=== PATIENT | male | born 1975 | race Two or more races ===

== ENCOUNTER 2024-10-11 14:53 | Emergency (ER) | payer OTHER ==
[~2024-10-11] VITALS: Ht 172.7 cm; Wt 81.8 kg
--- NOTE | 2024-10-11 15:25 | ED.PDOC ---
HPI (NEURO) HPI Comments This is a 49 year old male BRYANTA presenting to the ED with chief complaint of seizure-like activity. EMS reports that the patient was witnessed today at a liquor store to have collapsed and had seizure-like activity. EMS relays that the activity lasted an unknown amount of minutes, however, patient was still post-ictal upon their arrival. EMS states patient has some retrograde amnesia, believing that last place he was at was home. Patient denies any medical history including seizures. Patient denies any head injury, ETOH use, dizziness, headache, N/V, tongue trauma, or incontinence. Time Seen by MD: 15:23 Reviewed Notes: Nurses Notes, International Trade Manager Notes, Medications, Allergies Information Source: Patient, Emergency Med Personnel Mode of Arrival: EMS Severity: Moderate Timing: Hours Duration: Minutes Prehospital treatment: None Seizure Quality: Shaking, Single Episodes Seizure Location: Generalized Onset: At rest Circumstances: Spontaneous History of: None Modifying factors: Nothing Past Medical History PAST MEDICAL HISTORY: Denies Surgical History: Denies all surgeries Family History Family History: Reviewed,noncontributory to illness Social History Smoker: Non-Smoker Alcohol: Denies ETOH Use Drugs: Denies Drug Use Lives In: Home Constitutional: denies: chills, diaphoresis, fatigue, fever, malaise, sweats, weakness, others EENTM: denies: blurred vision, double vision, ear bleeding, ear discharge, ear drainage, ear pain, ear ringing, eye pain, eye redness, hearing loss, mouth pain, mouth swelling, nasal discharge, nose bleeding, nose congestion, nose p ain, photophobia, tearing, throat pain, throat swelling, voice changes, others Respiratory: denies: cough, hemoptysis, orthopnea, SOB at rest, shortness of breath, SOB with excertion, stridor, wheezing, others Cardiovascular: denies: chest pain, dizzy spells, diaphoresis, Dyspnea on exertion, edema, irregular heart beat, left arm pain, lightheadedness, palpitations, PND, syncope, others Gastrointestinal: denies: abdomen distended, abdominal pain, blood streaked bowels, constipated, diarrhea, dysphagia, difficulty swallowing, hematemesis, melena, nausea, poor appetite, poor fluid intake, rectal bleeding, rectal pain, vomiting, others Genitourinary: denies: burning, dysuria, flank pain, frequency, hematuria, incontinence, penile discharge, penile sore, pain, testicle pain, testicle swelling, urgency, others Neurological: reports: seizure, others (Amnesia); denies: dizziness, fainting, headache, left sided numbness, left sided weakness, numbness, paresthesia, pre- existing deficit, right sided numbness, right sided weakness, speech problems, tingling, tremors, weakness Musculoskeletal: denies: back pain, gout, joint pain, joint swelling, muscle pain, muscle stiffness, neck pain, others Integumetry: denies: bruises, change in color, change in hair/nails, dryness, laceration, lesions, lumps, rash, wounds, others Allergic/Immunocompromised: denies: Difficulty Healing, Frequent Infections, Hives, Itching, others Hematologic/Lymphatic: denies: anemia, blood clots, easy bleeding, easy bruising, swollen glands, others Endocrine: denies: excessive hunger, excessive sweating, excessive thirst, excessive urination, flushing, intolerance to cold, intolerance to heat, unexplained weight gain, unexplained weight loss, others Psychiatric: denies: anxiety, bipolar disorder, depression, hopeless, panic disorder, schizophrenia, sleepless, suicidal, others All Other Systems: Reviewed and Negative Physical Exam General Appearance: Moderate Distress, Normal HEENT: Normal ENT Inspection, Pharynx Normal, TMs Normal Neck: Full Range of Motion, Non-Tender, Normal, Normal Inspection Respiratory: Chest Non-Tender, Lungs Clear, No Accessory Muscle Use, No Respiratory Distress, Normal Breath Sounds Cardiovascular: No Edema, No JVD, No Murmur, No Gallop, Normal Peripheral Pulses, Regular Rate/Rhythm Breast Exam: Deferred Gastrointestinal: No Organomegaly, Non Tender, No Pulsatile Mass, Normal Bowel Sounds, Soft Genitalia: Deferred Pelvic: Deferred Rectal: Deferred Extremities: No calf tenderness, Normal capillary refill, Normal inspection, Normal range of motion, Non-tender, No pedal edema Musculoskeletal : Apperance: Normal Neurologic: Alert, screw cutter II-XII nml as Tested, No Motor Deficits, Normal Affect, Normal Mood, No Sensory Deficits Cerebellar Function: NOT DONE Reflexes: NOT DONE Skin: Dry, Normal Color, Warm Peripheral Pulses: 3+ Radial (R), 3+ Radial (L) Lymphatic: No Adenopathy Was a procedure done? Was a procedure done?: No Differential Diagnosis (SZ) Seizure: Psychogenic Seizure, Closed Head Injury, CVA/TIA X-Ray, Labs, Meds, VS Vital Signs Date Time Temp Pulse Resp B/P (MAP) Pulse Ox O2 Delivery O2 Flow Rate FiO2 10/11/24 15:36 98.5 109 14 136/73 98 98.5 Patient alert. Possibly had a drink. Had a seizure at the liquor store. Saturation pristine on room air. Establish intravenous access. Was given fluids. Was given thiamine. Unable to get a good history from the patient. Counseled patient on effects of drinking for 15 minutes. No sign of any trauma. Moving all extremities. CT of the head was not done because possibly was due to alcohol not seizure. Explained to the patient Continue monitoring. Time of 1ST Reevaluation: 16:22 Reevaluation 1ST: Unchanged Patient Education/Counseling: Diagnosis, Treatment Family Education/Counseling: No Family Present Departure 1 Departure Time of Disposition: 15:56 Impression: Primary Impression: Alcohol related seizure Disposition: 01 HOME / SELF CARE / HOMELESS Condition: Good Discharged With: Self Critical Care Note Critical Care Time?: No Stability Stability form required: No Heart Score Heart Score: Heart Score Response (Comments) Value History N/A 0 EKG N/A 0 Age N/A 0 Risk Factors N/A 0 Troponin N/A 0 Total 0 I personally scribed for SHAISTA CANTU MD ([email or web address]) on 10/11/24 at 15:25. Electronically submitted by Wilder Fields ([email or web address]). SHAISTA CANTU MD Oct 11, 2024 15:25
[2024-10-11 16:08] LABS: Hematocrit 43.4 % (41.0-53.0); Hemoglobin 15.0 g/dL (13.5-17.5); Mean Corpuscular Hemoglobin 33.2 pg (28.0-32.0); Mean Corpuscular Volume 96.0 fL (80.0-100.0); Nucleated Red Blood Cells % 0.2 %
[2024-10-11 16:13] LABS: Sodium 136 mmol/L (136-145)
[2024-10-11 16:14] LABS: Anion Gap 20 (5-15); Carbon Dioxide 23 mmol/L (20-31)
[2024-10-11 16:15] LABS: Calcium 10.3 mg/dL (8.7-10.4); Chloride 93 mmol/L (98-107); Potassium 3.5 mmol/L (3.5-5.1)
[2024-10-11 16:20] LABS: BUN/Creatinine Ratio 10.3 (10.0-20.0); Blood Urea Nitrogen 10 mg/dL (9-23); Glucose 129 mg/dL (74-106)
[2024-10-11] MEDS: LORazepam 2MG/ML-1ML VIAL IV ONE (16:23)
[2024-10-11] MEDS: SODIUM CHLORIDE 0.9% 1,000 ML IV ONE ×2 (16:23→17:21)
[2024-10-11] MEDS: THIAMINE 100mg/ml INJ (200mg/2ml VIAL) IV ONE (16:28)
--- NOTE | 2024-10-11 18:39 | DVH ---
CT HEAD WITHOUT CONTRAST Indication: fall EXAM DATE: 10/11/2024 06:07 PM COMPARISON: None TECHNIQUE: CT of the head without intravenous contrast. RADIATION DOSE: CTDIvol: 56 mGy, DLP: 1113 mGy*cm FINDINGS: There is no intracranial hemorrhage. There is no extra-axial fluid, mass, mass effect or midline shif t. The ventricles are midline and normal in size. Basilar cisterns are patent. Machado-white differentia tion is maintained. 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 The paranasal sinuses and mastoids are well-pneumatized. Imaged portion of the orbits are unremarkabl e. IMPRESSION: No intracranial hemorrhage or mass effect.
[2024-10-12 05:50] VITALS: BP 138/88; PULSE 110; RESP 17; TEMP 99; O2SAT 97
== END 2024-10-12 06:05 | disposition home or self-care (01) ==
LOC: ER 14:53 → EDBD 14:53 → ER 10-12 06:05
DX: G40.501 Epileptic seizures related to external causes, not intractable, with status epilepticus (principal); Z79.899 Other long term (current) drug therapy
CPT/HCPCS: 36415; 70450; 80048; 80320; 85025; 96361; 96374; 96375; 99285; J2060; J3411; J7030

== ENCOUNTER 2024-10-12 11:13 | Inpatient (IN) | payer OTHER ==
[~2024-10-12] VITALS: Ht 175.3 cm; Wt 77.5 kg
--- NOTE | 2024-10-12 11:43 | ED.PDOC ---
Altered Mental Status HPI Comments 49-year-old male, brought in by mother presents to the emergency department if there chief complaint of ALOC. Upon arrival to the emergency department, patient is A&Ox1 to self only. Patient does endorse drinking an unknown amount of Tequila today (10/12/24). Patient was seen at [facility] yesterday (10/11/24) for an alcohol induced seizure. Unable to obtain further history or PMHx due to patient intoxication. Chief Complaint: ALOC Time Seen by MD: 11:40 Reviewed Notes: Nurses Notes, Medications, Allergies Allergies: Coded Allergies: NO KNOWN ALLERGIES (Unverified , 10/11/24) Information Source: Patient, Relative (Mother) Mode of Arrival: Ambulatory Severity: Moderate Timing: Hours Duration: Since onset Prehospital treatment: None Quality: Decreased Alertness Recent: None History of: None Associated Signs and Symptoms: None Past Medical History PAST MEDICAL HISTORY: Denies Surgical History: Denies all surgeries Family History Family History: Reviewed,noncontributory to illness Social History Smoker: Non-Smoker Alcohol: Heavy Drugs: Denies Drug Use Lives In: Home Unable to Obtain due to: Altered Mental Status Physical Exam General Appearance: Moderate Distress HEENT: Normal ENT Inspection, Pharynx Normal, TMs Normal Neck: Full Range of Motion, Non-Tender, Normal, Normal Inspection Respiratory: Chest Non-Tender, Lungs Clear, No Accessory Muscle Use, No Respiratory Distress, Normal Breath Sounds Cardiovascular: No Edema, No JVD, No Murmur, No Gallop, Normal Peripheral Pulses, Regular Rate/Rhythm Breast Exam: Deferred Gastrointestinal: No Organomegaly, Non Tender, No Pulsatile Mass, Normal Bowel Sounds, Soft Genitalia: Deferred Pelvic: Deferred Rectal: Deferred Extremities: No calf tenderness, Normal capillary refill, Normal inspection, Normal range of motion, Non-tender, No pedal edema Musculoskeletal : Apperance: Normal Neurologic: Alert, mailing machine helper II-XII nml as Tested, No Motor Deficits, Normal Affect, Normal Mood, No Sensory Deficits Cerebellar Function: Normal Reflexes: Normal Skin: Dry, Normal Color, Warm Peripheral Pulses: 3+ Radial (R), 3+ Radial (L) Lymphatic: No Adenopathy Was a procedure done? Was a procedure done?: No Differential Diagnosis (ALOC) Differential Diagnosis: Dehydration, Seizure, ETOH Intoxication X-Ray, Labs, Meds, VS Vital Signs Date Time Temp Pulse Resp B/P (MAP) Pulse Ox O2 Delivery O2 Flow Rate FiO2 10/12/24 12:00 Room Air* 0 21 10/12/24 12:00 97.9 83 20 128/87 (101) 96 97.9 10/12/24 11:28 87 10/12/24 11:14 97.5 105 20 144/93 99 97.5 Lab Test 10/12/24 13:26 10/12/24 11:21 Range/Units White Blood Count 6.3 # 4.4-10.8 10^3/uL Red Blood Count 4.35 L 4.5-5.90 10^6/uL Hemoglobin 14.6 13.5-17.5 g/dL Hematocrit 41.3 41.0-53.0 % Mean Corpuscular Volume 95.0 80.0-100.0 fL Mean Corpuscular Hemoglobin 33.6 H 28.0-32.0 pg Mean Corpuscular Hemoglobin Concent 35.4 32.0-36.0 g/dL Red Cell Distribution Width 13.0 11.8-14.3 % Platelet Count 119 L 140-450 10^3/uL Mean Platelet Volume 7.2 6.9-10.8 fL Neutrophils (%) (Auto) 73.7 37.0-80.0 % Lymphocytes (%) (Auto) 17.9 10.0-50.0 % Monocytes (%) (Auto) 8.2 0.0-12.0 % Eosinophils (%) (Auto) 0.0 0.0-7.0 % Basophils (%) (Auto) 0.2 0.0-2.0 % Neutrophils # (Auto) 4.6 1.6-8.6 10 ^3/uL Lymphocytes # (Auto) 1.1 0.4-5.4 10 ^3/uL Monocytes # (Auto) 0.5 0-1.3 10 ^3/uL Eosinophils # (Auto) 0 0-0.8 10 ^3/uL Basophils # (Auto) 0 0-0.2 10 ^3/uL Nucleated Red Blood Cells 0.1 % Sodium Level 136 136-145 mmol/L Potassium Level 3.0 L 3.5-5.1 mmol/L Chloride Level 96 L 98-107 mmol/L Carbon Dioxide Level 24 20-31 mmol/L Anion Gap 16 H 5-15 Blood Urea Nitrogen 5 L 9-23 mg/dL Creatinine 0.74 0.700-1.30 mg/dL Glomerular Filtration Rate Calc 110 >90 mL/min BUN/Creatinine Ratio 6.8 L 10.0-20.0 Serum Glucose 89 74-106 mg/dL Calcium Level 9.5 8.7-10.4 mg/dL Plasma/Serum Blood Alcohol 294.9 H <10 mg/dL POC Glucose 113 H 70-106 mg/dl Current Medications Medications (Trade) Dose Ordered Sig/Nir Route Start Time Stop Time Status Last Admin Sodium Chloride 1,000 ml @ 1,000 mls/hr Q1H ONCE IVB 10/12/24 11:30 10/12/24 12:29 DC 10/12/24 11:57 Thiamine HCl 100 mg ONCE ONCE IV 10/12/24 11:30 10/12/24 11:31 DC 10/12/24 12:01 Lorazepam (Ativan Inj) 2 mg ONCE ONCE IM 10/12/24 12:15 10/12/24 12:16 DC 10/12/24 12:18 Patient alert. Was seen here yesterday for the same symptom pain Alcohol abuse. Answering questions. Establish intravenous access. Was given fluids. Was given thiamine. Was given Ativan. Potassium is low. Was given potassium. Possible seizure prior to coming. Was given Keppra. He will be admitted for seizure disorder. Continue monitoring. Time of 1ST Reevaluation: 12:10 Reevaluation 1ST: Unchanged Patient Education/Counseling: Diagnosis, Treatment Family Education/Counseling: No Family Present SEPSIS Sepsis Screen Date sepsis recognized/suspect: Oct 12, 2024 Time Sepsis recognized/suspect: 1114 Recent Procedure: No On Antibiotic Therapy: No Respiratory Rate >20: No Heart Rate >90: Yes Temp<36 C (96.8 F) or >38.3 C: No SBP <90 or MAP <65 mmHG: No New Acute Mental Status Change: No Is the patient on CPAP, BIPAP,: No Physician Orders Upsetting Machine Operator (10/12/24 11:30) Urinalysis (10/12/24 14:05) Vital Signs Date Time Temp Pulse Resp B/P (MAP) Pulse Ox O2 Delivery O2 Flow Rate FiO2 10/12/24 12:00 Room Air* 0 21 10/12/24 12:00 97.9 83 20 128/87 (101) 96 97.9 10/12/24 11:28 87 10/12/24 11:14 97.5 105 20 144/93 99 97.5 Laboratory Tests Test 10/12/24 13:26 White Blood Count 6.3 10^3/uL (4.4-10.8) # Medications Medications Dose Ordered Sig/Nir Route Start Time Stop Time Status Last Admin Dose Admin Lorazepam 2 mg ONCE ONCE IM 10/12/24 12:15 10/12/24 12:16 DC 10/12/24 12:18 Sodium Chloride 1,000 ml @ 1,000 mls/hr Q1H ONCE IVB 10/12/24 11:30 10/12/24 12:29 DC 10/12/24 11:57 Thiamine HCl 100 mg ONCE ONCE IV 10/12/24 11:30 10/12/24 11:31 DC 10/12/24 12:01 Departure 1 Departure Time of Disposition: 14:35 Impression: Primary Impression: Alcohol related seizure Additional Impressions: Seizure disorder Alcohol abuse Disposition: ADMITTED INPATIENT Admit to: Med Surg Condition: Guarded Critical Care Note Critical Care Time?: No Stability Stability form required: No Heart Score Heart Score: Heart Score Response (Comments) Value History N/A 0 EKG N/A 0 Age N/A 0 Risk Factors N/A 0 Troponin N/A 0 Total 0 I personally scribed for SHAISTA CANTU MD ([email or web address]) on 10/12/24 at 11:43. Electronically submitted by Tran Walden ([email or web address]). I personally scribed for SHAISTA CANTU MD ([email or web address]) on 10/12/24 at 11:47. Electronically submitted by Tran Walden ([email or web address]). SHAISTA CANTU MD Oct 12, 2024 11:43
--- NOTE | 2024-10-12 11:50 | ECG ---
[facility] Test Date: 2024-10-12 Test Time: 11:28:45 Pat Name: KEERTHI DELVALLE Department: [facility] ED Patient ID: [facility]-[id number] Room: 0278T Gender: M Upholsterer Inside: YEISON : 1975 Requested By: SHAISTA CANTU Order Number: [id number] Reading MD: Joseph Prakash Measurements Intervals [place] Rate: 87 P: 75 VT: 169 QRS: 5 QRSD: 93 T: 23 QT: 374 QTc: 450 Interpretive Statements Sinus rhythm Posterior infarct, old Electronically Signed On 10-13-2024 18:47:08 PDT by Joseph Prakash Please click the below link to view image of tracing.
[2024-10-12] MEDS: SODIUM CHLORIDE 0.9% 1,000 ML IVB ONE (11:57)
[2024-10-12] MEDS: THIAMINE 100mg/ml INJ (200mg/2ml VIAL) IV ONE (12:01)
[2024-10-12] MEDS: LORazepam 2MG/ML-1ML VIAL IM ONE (12:18)
[2024-10-12] MEDS: LORazepam 2MG/ML-1ML VIAL ONE (12:20)
[2024-10-12 13:48] LABS: Hematocrit 41.3 % (41.0-53.0); Hemoglobin 14.6 g/dL (13.5-17.5); Mean Corpuscular Hemoglobin 33.6 pg (28.0-32.0); Mean Corpuscular Volume 95.0 fL (80.0-100.0); Nucleated Red Blood Cells % 0.1 %
[2024-10-12 13:55] LABS: Anion Gap 16 (5-15); Calcium 9.5 mg/dL (8.7-10.4); Carbon Dioxide 24 mmol/L (20-31)
[2024-10-12 13:59] LABS: Chloride 96 mmol/L (98-107); Potassium 3.0 mmol/L (3.5-5.1); Sodium 136 mmol/L (136-145)
[2024-10-12 14:00] LABS: BUN/Creatinine Ratio 6.8 (10.0-20.0); Glucose 89 mg/dL (74-106)
[2024-10-12 14:06] LABS: Blood Urea Nitrogen 5 mg/dL (9-23)
[2024-10-12] MEDS: levETIRAcetam 1000 mg/100ml 100 ML IV ONE (15:07)
[2024-10-12] MEDS ORDERED: ONDANSETRON HCL 4 MG/2 ML VIAL IV PRN (15:15)
[2024-10-12] MEDS ORDERED: MORPHINE SULFATE INJ 2 MG/ml SYRG IV PRN (15:15)
[2024-10-12] MEDS ORDERED: NITROGLYCERIN 0.4 MG SL TAB SL PRN (15:15)
[2024-10-12] MEDS ORDERED: LORazepam 2MG/ML-1ML VIAL IV PRN (15:15)
[2024-10-12] MEDS ORDERED: ACETAMINOPHEN 325 MG TAB PO PRN (15:15)
[2024-10-12] MEDS ORDERED: DOCUSATE SOD 100 MG CAP PO PRN (15:15)
--- NOTE | 2024-10-12 15:18 | DVHHP2 ---
History of Present Illness Reason for Visit: Alcohol related seizure History of Present Illness The patient is a 49-year-old male with past medical history of EtOH abuse who presented to [facility] ED for evaluation of altered level of consciousness. As reported, patient was alert oriented to self only, endorses to drinking an unknown amount of Tequila today, non experiencing tremors, agitation, alcohol-induced seizure. [facility] 10[facility]/2024 for same symptoms. Patient was seen and evaluated in the ED, laboratory data shows WBC 6.3, platelets 119, sodium 136, potassium 3.0, BUN 5, creatinine 0.74, glucose 89, calcium 9.5, alcohol level 294.9, blood pressure 128/87, heart rate 83, temperature 97.9 F, O2 saturation 96% on room air. Head CT showed no intracranial hemorrhage or mass effect. Please see medication orders section in the computer. On my assessment, patient remains disorganized, denied chest pain, no headache, no dizziness, no shortness of breath, no nausea, no vomiting, no fever, no chills. Patient was admitted for further evaluation and medical management. Past Medical History EtOH abuse Past Surgical History Denies all surgeries Family History Reviewed, noncontributory to the management of this case. Past Social History Patient lives at home, denies smoking, drinks alcohol heavily, denies illicit drugs abuse. Review of Systems Constitutional: No: Fever, Chills, Sweats, Weakness, Malaise, Other Eyes: No: Pain, Vision change, Conjunctivae inflammation, Eyelid inflammation, Other, Redness ENT: No: Ear pain, Ear discharge, Nose pain, Nose discharge, Nose congestion, Mouth pain, Mouth swelling, Throat pain, Throat swelling, Other Respiratory: No: Cough, Dry, Shortness of breath, SOB with excertion, Wheezing, Hemoptysis, Pleuritic Pain, Sputum, Wheezing, Other Cardiovascular: No: Chest Pain, Palpitations, Orthopnea, Paroxysmal Noc. Dyspnea, Edema, Lt Headedness, Other Gastrointestinal: No: Nausea, Vomiting, Abdominal Pain, Diarrhea, Constipation, Melena, Hematochezia, Other Genitourinary: No Dysuria, No Frequency, No Incontinence, No Hematuria, No Retention, No Other Musculoskeletal: No: other, neck pain, shoulder pain, arm pain, back pain, hand pain, leg pain, foot pain Skin: No: Rash, Lesions, Jaundice, Bruising, Other Neurological: Seizures (Alcohol-induced), Other (Altered level of consciousness); No: Weakness, Numbness, Incoordination, Change in speech, Confusion Allergies: Coded Allergies: NO KNOWN ALLERGIES (Unverified , 10/11/24) Exam Vital Signs Vital Signs Date Time Temp Pulse Resp B/P (MAP) Pulse Ox O2 Delivery O2 Flow Rate FiO2 10/12/24 12:00 Room Air* 0 21 10/12/24 12:00 97.9 83 20 128/87 (101) 96 97.9 General Appearance: Alert, Cooperative, No acute distress, Other (Oriented x2) HEENT: Atraumatic, PERRLA, EOMI, Mucous membr. moist/pink Respiratory: Clear to auscultation, Normal air movement Cardiovascular: Regular rate, Normal S1, Normal S2, No murmurs Abdominal: Normal bowel sounds, Soft, No tenderness, No hepatospenomegaly, No masses Extremities: No clubbing, No cyanosis, No edema, Normal pulses, No tenderness/swelling Skin: No rashes, No breakdown, No significant lesion Neuro: Normal speech, Normal tone, Sensation intact, Cranial nerves 3-12 NL, Reflexes 2+, Other (Unsteady gait) Psych/Mental Status: Mood NL, Other (Altered mental status) Labs/Xrays Labs Test 10/12/24 13:26 10/12/24 11:21 Range/Units White Blood Count 6.3 # 4.4-10.8 10^3/uL Red Blood Count 4.35 L 4.5-5.90 10^6/uL Hemoglobin 14.6 13.5-17.5 g/dL Hematocrit 41.3 41.0-53.0 % Mean Corpuscular Volume 95.0 80.0-100.0 fL Mean Corpuscular Hemoglobin 33.6 H 28.0-32.0 pg Mean Corpuscular Hemoglobin Concent 35.4 32.0-36.0 g/dL Red Cell Distribution Width 13.0 11.8-14.3 % Platelet Count 119 L 140-450 10^3/uL Mean Platelet Volume 7.2 6.9-10.8 fL Neutrophils (%) (Auto) 73.7 37.0-80.0 % Lymphocytes (%) (Auto) 17.9 10.0-50.0 % Monocytes (%) (Auto) 8.2 0.0-12.0 % Eosinophils (%) (Auto) 0.0 0.0-7.0 % Basophils (%) (Auto) 0.2 0.0-2.0 % Neutrophils # (Auto) 4.6 1.6-8.6 10 ^3/uL Lymphocytes # (Auto) 1.1 0.4-5.4 10 ^3/uL Monocytes # (Auto) 0.5 0-1.3 10 ^3/uL Eosinophils # (Auto) 0 0-0.8 10 ^3/uL Basophils # (Auto) 0 0-0.2 10 ^3/uL Nucleated Red Blood Cells 0.1 % Sodium Level 136 136-145 mmol/L Potassium Level 3.0 L 3.5-5.1 mmol/L Chloride Level 96 L 98-107 mmol/L Carbon Dioxide Level 24 20-31 mmol/L Anion Gap 16 H 5-15 Blood Urea Nitrogen 5 L 9-23 mg/dL Creatinine 0.74 0.700-1.30 mg/dL Glomerular Filtration Rate Calc 110 >90 mL/min BUN/Creatinine Ratio 6.8 L 10.0-20.0 Serum Glucose 89 74-106 mg/dL Calcium Level 9.5 8.7-10.4 mg/dL Plasma/Serum Blood Alcohol 294.9 H <10 mg/dL POC Glucose 113 H 70-106 mg/dl PATIENT: KEERTHI DELVALLE ACCT: [id number] UNIT: [id number] : 1975 LOC: ER ROOM / BED: / AGE / SEX: 49 / M ADM STATUS: REG ER SERVICE 1801 ORDERING PHYSICIAN: SHAISTA CANTU MD PROCEDURE(s): HWOCT - HEAD WITHOUT CONTRAST REASON: fall ORDER NUMBER(s): [id number], ACCESSION NUMBER(s): [id number] CT HEAD WITHOUT CONTRAST Indication: fall EXAM DATE: 10/11/2024 06:07 PM COMPARISON: None TECHNIQUE: CT of the head without intravenous contrast. RADIATION DOSE: CTDIvol: 56 mGy, DLP: 1113 mGy*cm FINDINGS: There is no intracranial hemorrhage. There is no extra-axial fluid, mass, mass effect or midline shift. The ventricles are midline and normal in size. Basilar cisterns are patent. Machado-white differentiation is maintained. 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 The paranasal sinuses and mastoids are well-pneumatized. Imaged portion of the orbits are unremarkable. IMPRESSION: No intracranial hemorrhage or mass effect. SEPSIS Sepsis Screen Date sepsis recognized/suspect: Oct 12, 2024 Time Sepsis recognized/suspect: 1200 Recent Procedure: No On Antibiotic Therapy: No Respiratory Rate >20: No Heart Rate >90: No Temp<36 C (96.8 F) or >38.3 C: No SBP <90 or MAP <65 mmHG: No New Acute Mental Status Change: Yes Is the patient on CPAP, BIPAP,: No Physician Orders Highway Technician (10/12/24 11:30) Urinalysis (10/12/24 14:05) Vital Signs Date Time Temp Pulse Resp B/P (MAP) Pulse Ox O2 Delivery O2 Flow Rate FiO2 10/12/24 12:00 Room Air* 0 21 10/12/24 12:00 97.9 83 20 128/87 (101) 96 97.9 10/12/24 11:28 87 10/12/24 11:14 97.5 105 20 144/93 99 97.5 Laboratory Tests Test 10/12/24 13:26 White Blood Count 6.3 10^3/uL (4.4-10.8) # Medications Medications Dose Ordered Sig/Nir Route Start Time Stop Time Status Last Admin Dose Admin Levetiracetam 100 ml @ 400 mls/hr ONCE ONCE IV 10/12/24 14:45 10/12/24 14:59 DC 10/12/24 15:07 400 MLS/HR Lorazepam 2 mg ONCE ONCE IM 10/12/24 12:15 10/12/24 12:16 DC 10/12/24 12:18 2 MG Sodium Chloride 1,000 ml @ 1,000 mls/hr Q1H ONCE IVB 10/12/24 11:30 10/12/24 12:29 DC 10/12/24 11:57 1,000 MLS/HR Thiamine HCl 100 mg ONCE ONCE IV 10/12/24 11:30 10/12/24 11:31 DC 10/12/24 12:01 100 MG Assessment/Plan Assessment/Plan Alcohol intoxication Hypokalemia Alcohol related seizure Alcohol withdrawal syndrome Plan 1. Admit to telemetry unit 2. Breathing treatment 3. Pain control management 4. Management of fluids and electrolytes 5. Consultation for hospitalist 6. Diagnostic tests head CT 7. DVT prophylaxis-on SCDs 8. Repeat labs CBC, CMP in a.m. 9. Continue with current medical management 10. Treatment plan discussed with patient and RN. Patient verbalized understanding. Plan discussed with: Patient, Other (RN) Problem List: (1) Alcohol intoxication (2) Hypokalemia (3) Alcohol related seizure (4) Alcohol withdrawal syndrome Date of Service: Oct 12, 2024 Billing Provider: NITHYA FERGUSON DNP Common Visit Codes: [id number] INP/OBS CARE (HIGH) NITHYA FERGUSON DNP Oct 12, 2024 15:18
[2024-10-12 16:08] LABS: Urine Protein, UAD Negative (Negative)
[2024-10-12] MEDS: SODIUM CHLORIDE 0.9% 1,000 ML IV SCH (16:30)
[2024-10-12] MEDS: FOLIC ACID 1 MG in D5W 5% 50 ML INJ ONE (18:10)
[2024-10-12] MEDS: POTASSIUM CHL 20 Meq TABLET PO ONE (20:15)
[2024-10-12 22:36] VITALS: BP 146/100; PULSE 94; RESP 20; TEMP 98.4; O2SAT 99
[2024-10-13] MEDS: CALCIUM CARB 500 MG CHEW TAB PO ONE (00:49)
[2024-10-13 06:55] LABS: Hematocrit 39.2 % (41.0-53.0); Hemoglobin 13.9 g/dL (13.5-17.5); Mean Corpuscular Hemoglobin 33.9 pg (28.0-32.0); Mean Corpuscular Volume 96.0 fL (80.0-100.0); Nucleated Red Blood Cells % 0.0 %
[2024-10-13 07:20] LABS: Alkaline Phosphatase 89 U/L (46-116); Anion Gap 13 (5-15); BUN/Creatinine Ratio 5.9 (10.0-20.0); Calcium 10.2 mg/dL (8.7-10.4); Carbon Dioxide 25 mmol/L (20-31); Glucose 82 mg/dL (74-106); Potassium 3.5 mmol/L (3.5-5.1); Total Protein 7.8 g/dL (5.7-8.2)
[2024-10-13 07:33] LABS: Alanine Aminotransferase 129 U/L (7-40); Albumin 5.1 g/dL (3.2-4.8); Bilirubin, Total 2.1 mg/dL (0.2-1.0); Blood Urea Nitrogen 5 mg/dL (9-23); Chloride 95 mmol/L (98-107); Sodium 133 mmol/L (136-145)
[2024-10-13 08:00] VITALS: PULSE 79; RESP 16
[2024-10-13] MEDS: FOLIC ACID 1 MG in D5W 5% 50 ML INJ SCH (10:28)
[2024-10-13] MEDS: THIAMINE 100mg/ml INJ (200mg/2ml VIAL) IV SCH (10:29)
[2024-10-13 10:55] LABS: Hepatitis B Surface Antigen Negative (Negative)
[2024-10-13 11:26] LABS: Hepatitis C Antibody Negative (Negative)
--- NOTE | 2024-10-13 11:51 | DVHPN2 ---
Reviewed: Care Plan, H&P, Labs, Medications, Previous Orders, Radiology Changes from previous H/P or p: No Changes Eyes: No Pain, No Vision change, No Conjunctivae inflammation, No Eyelid inflammation, No Other, No Redness ENT: No Ear pain, No Ear discharge, No Nose pain, No Nose discharge, No Nose congestion, No Mouth pain, No Mouth swelling, No Throat pain, No Throat swelling, No Other Cardiovascular: No Chest Pain, No Palpitations, No Orthopnea, No Paroxysmal Noc. Dyspnea, No Edema, No Lt Headedness, No Other Respiratory: No Cough, No Dry, No Shortness of breath, No SOB with excertion, No Wheezing, No Hemoptysis, No Pleuritic Pain, No Sputum, No Other Gastrointestinal: No Nausea, No Vomiting, No Abdominal Pain, No Diarrhea, No Constipation, No Melena, No Hematochezia, No Other Genitourinary: No Dysuria, No Frequency, No Incontinence, No Hematuria, No Retention, No Other Musculoskeletal: No other, No neck pain, No shoulder pain, No arm pain, No back pain, No hand pain, No leg pain, No foot pain Skin: No Rash, No Lesions, No Jaundice, No Bruising, No Other Objective Vitals Vital Signs Date Time Temp Pulse Resp B/P (MAP) Pulse Ox O2 Delivery O2 Flow Rate FiO2 10/13/24 08:00 79 16 Room Air* 0 21 10/12/24 22:36 98.4 146/100 (115) 99 98.4 Intake/Output Intake and Output 10/13/24 07:00 Intake Total 0 ml Output Total 300 ml Balance -300 ml Intake Oral 0 ml Output Urine Total 300 ml Medications Current Medications Medications Dose Ordered Sig/Nir Route Start Time Stop Time Status Last Admin Dose Admin Thiamine HCl 100 mg DAILY IV 10/13/24 10:00 10/13/24 10:29 100 MG Folic Acid 1 mg/ Dextrose 50.2 ml @ 200.8 mls/ hr DAILY INJ 10/13/24 10:00 10/13/24 10:28 200.8 MLS/HR Lorazepam 1 mg Q2HP PRN IV 10/12/24 15:15 Sodium Chloride 1,000 ml @ 120 mls/hr Q8H20M IV 10/12/24 15:15 10/13/24 07:55 120 MLS/HR Ondansetron HCl 4 mg Q4HP PRN IV 10/12/24 15:15 Docusate Sodium 100 mg BIDPRN PRN PO 10/12/24 15:15 Acetaminophen 650 mg Q6HP PRN PO 10/12/24 15:15 Nitroglycerin 0.4 mg Q5MINP PRN SL 10/12/24 15:15 Morphine Sulfate 2 mg Q30M PRN IV 10/12/24 15:15 Laboratory Results Laboratory Tests 10/13/24 05:52 Chemistry Test 10/12/24 13:26 10/13/24 05:52 Calcium Level 9.5 mg/dL (8.7-10.4) 10.2 mg/dL (8.7-10.4) Albumin 5.1 g/dL (3.2-4.8) H Total Protein 7.8 g/dL (5.7-8.2) LFT Test 10/13/24 05:52 Alanine Aminotransferase (ALT) 129 U/L (7-40) H Alkaline Phosphatase 89 U/L (46-116) Aspartate Amino Transferase (AST) 206 U/L (13-40) H Total Bilirubin 2.1 mg/dL (0.2-1.0) H Urinalysis Test 10/12/24 15:48 Urine Color Light-yellow (Yellow) Urine Clarity Clear (Clear) Urine pH 7.0 (5.0-9.0) Urine Specific [place] 1.004 (1.001-1.035) Urine Protein Negative (Negative) Urine Ketones Negative (Negative) Urine Blood 1+ /uL (Negative) H Urine Nitrite Negative (Negative) Urine Bilirubin Negative (Negative) Urine Urobilinogen Normal mg/dL (Negative) Urine Leukocyte Esterase Negative /uL (Negative) Urine RBC 1 /hpf (0 - 3) Urine Microscopic WBC < 1 /HPF (0-3) Urine Squamous Epithelial Cells None seen /hpf (<5) Urine Bacteria None seen /hpf (None Seen) Urine Glucose Normal mg/dL (Normal) Labs and/or images reviewed: Labs reviewed by me, Image(s) reviewed by me Assessment/Plan Assessment/Plan Acute alcoholic intoxication blood alcohol 294; thiamine folic acid Ativan Acute dehydration: IV fluids Acute metabolic and toxic encephalopathy Chronic current alcohol abuse: Counseling Elevated liver enzymes AST and ALT in the range of 200s. Hep B negative hep C negative, GI consult Time spent [address] head negative Plan discussed with: Patient My Orders Orders - ART EUGENE MD Procedure Category Date Status Time Gallbladder US 10/13/24 Logged 11:45 * Gi Dvh Camera Repairman CONS 10/13/24 Transmitted 11:46 Date of Service: Oct 13, 2024 Billing Provider: ART EUGENE MD Common Visit Codes: [id number] INP/OBS CARE(HIGH) ART EUGENE MD Oct 13, 2024 11:51
--- NOTE | 2024-10-13 12:56 | DVH ---
INDICATION: Elevated liver enzymes TECHNIQUE: Multiple real-time sonographic images were obtained of the right upper quadrant. COMPARISON: None FINDINGS: The liver demonstrates heterogenous echotexture without focal mass lesions. The liver measu res 20 cm. There is no intrahepatic or extrahepatic ductal dilatation. The common duct measures 0. 3 mm. The gallbladder is without evidence of stone or sludge. The gallbladder wall measures 0.3mm and is within normal limits. The right kidney measures 10 cm. The right kidney is normal in contour, size, and shape. The echog enicity is normal. There is no hydronephrosis. The pancreas is not well visualized due to overlying bowel gas. IMPRESSION: No sonographic evidence of gallstones or acute cholecystitis. Hepatic steatosis/hepatomegaly.
[2024-10-13] MEDS: NICOTINE 21MG/24 HR TOPICAL PATCH TD ONE (15:30)
[2024-10-13 17:00] VITALS: BP 127/92; PULSE 85; RESP 20; TEMP 98.5; O2SAT 97
[2024-10-13 20:00] VITALS: PULSE 87
[2024-10-13 21:00] VITALS: BP 137/93; PULSE 86; RESP 16; TEMP 98.2; O2SAT 97
[2024-10-14] VITALS (9 sets, daily range): BP systolic 135–145; BP diastolic 88–98; PULSE 76–90; RESP 17–19; TEMP 97.9–98.8; O2SAT 97–99
[2024-10-14] MEDS: NICOTINE 21MG/24 HR TOPICAL PATCH TD SCH (11:37)
--- NOTE | 2024-10-14 12:21 | DVHPN2 ---
Reviewed: Care Plan, H&P, Labs, Medications, Previous Orders, Radiology Changes from previous H/P or p: No Changes Eyes: No Pain, No Vision change, No Conjunctivae inflammation, No Eyelid inflammation, No Other, No Redness ENT: No Ear pain, No Ear discharge, No Nose pain, No Nose discharge, No Nose congestion, No Mouth pain, No Mouth swelling, No Throat pain, No Throat swelling, No Other Cardiovascular: No Chest Pain, No Palpitations, No Orthopnea, No Paroxysmal Noc. Dyspnea, No Edema, No Lt Headedness, No Other Respiratory: No Cough, No Dry, No Shortness of breath, No SOB with excertion, No Wheezing, No Hemoptysis, No Pleuritic Pain, No Sputum, No Other Gastrointestinal: No Nausea, No Vomiting, No Abdominal Pain, No Diarrhea, No Constipation, No Melena, No Hematochezia, No Other Genitourinary: No Dysuria, No Frequency, No Incontinence, No Hematuria, No Retention, No Other Musculoskeletal: No other, No neck pain, No shoulder pain, No arm pain, No back pain, No hand pain, No leg pain, No foot pain Skin: No Rash, No Lesions, No Jaundice, No Bruising, No Other Objective Vitals Vital Signs Date Time Temp Pulse Resp B/P (MAP) Pulse Ox O2 Delivery O2 Flow Rate FiO2 10/14/24 09:00 98.8 78 17 137/88 (104) 98 98.8 10/14/24 08:30 Room Air* 0 21 Intake/Output Intake and Output 10/14/24 07:00 Intake Total 1250 ml Balance 1250 ml Intake Oral 1250 ml # Voids 9 Medications Current Medications Medications Dose Ordered Sig/Nir Route Start Time Stop Time Status Last Admin Dose Admin Thiamine HCl 100 mg DAILY IV 10/13/24 10:00 10/14/24 11:26 100 MG Folic Acid 1 mg/ Dextrose 50.2 ml @ 200.8 mls/ hr DAILY INJ 10/13/24 10:00 10/14/24 11:25 200.8 MLS/HR Lorazepam 1 mg Q2HP PRN IV 10/12/24 15:15 Sodium Chloride 1,000 ml @ 120 mls/hr Q8H20M IV 10/12/24 15:15 10/14/24 11:26 120 MLS/HR Ondansetron HCl 4 mg Q4HP PRN IV 10/12/24 15:15 Docusate Sodium 100 mg BIDPRN PRN PO 10/12/24 15:15 Acetaminophen 650 mg Q6HP PRN PO 10/12/24 15:15 Nitroglycerin 0.4 mg Q5MINP PRN SL 10/12/24 15:15 Morphine Sulfate 2 mg Q30M PRN IV 10/12/24 15:15 Nicotine 1 patch DAILY TD 10/14/24 10:00 10/14/24 11:37 1 PATCH Laboratory Results Laboratory Tests 10/13/24 05:52 Urinalysis Test 10/12/24 15:48 Urine Color Light-yellow (Yellow) Urine Clarity Clear (Clear) Urine pH 7.0 (5.0-9.0) Urine Specific [place] 1.004 (1.001-1.035) Urine Protein Negative (Negative) Urine Ketones Negative (Negative) Urine Blood 1+ /uL (Negative) H Urine Nitrite Negative (Negative) Urine Bilirubin Negative (Negative) Urine Urobilinogen Normal mg/dL (Negative) Urine Leukocyte Esterase Negative /uL (Negative) Urine RBC 1 /hpf (0 - 3) Urine Microscopic WBC < 1 /HPF (0-3) Urine Squamous Epithelial Cells None seen /hpf (<5) Urine Bacteria None seen /hpf (None Seen) Urine Glucose Normal mg/dL (Normal) Labs and/or images reviewed: Labs reviewed by me, Image(s) reviewed by me Assessment/Plan Assessment/Plan Acute alcoholic intoxication blood alcohol 294; thiamine folic acid Ativan Acute dehydration: IV fluids Acute metabolic and toxic encephalopathy Chronic current alcohol abuse: Counseling Elevated liver enzymes AST and ALT in the range of 200s. Hep B negative hep C negative, GI consult placed today Time spent [address] head negative Plan discussed with: Patient My Orders Orders - ART EUGENE MD Procedure Category Date Status Time Nicotine 21mg/24hr PHA 10/14/24 In Process (Nicoderm 21mg/24hr) 10:00 Date of Service: Oct 14, 2024 Billing Provider: ART EUGENE MD Common Visit Codes: [id number] INP/OBS CARE(HIGH) ART EUGENE MD Oct 14, 2024 12:21
--- NOTE | 2024-10-14 14:39 | DVHINCON2 ---
GI Consult Consult Note GI consult note Date of Consultation: 10/14/2024 Chief Complaint: Elevated LFT Referring Physician: Dr. Eber Eugene H&P: 49-year-old male with history of EtOH abuse admitted with altered level of consciousness. Patient is able to answer questions at this time. Admits to heavy alcohol use about one pt or a 5th every day for the past 10 years. No abdominal pain. No nausea or vomiting, denies hematemesis. Last bowel movement one day ago denies melena or red blood in stool. Status post EGD about five years ago within normal limits per patient. No colonoscopy in past. Past Medical History: ETOH abuse Past Surgical History: Denies Social History: NO smoking, heavy drinking ETOH Family History: Noncontributory Review of Systems: Constitutional: no fever, chill, weight loss HEENT: no eye pain, no hearing loss, no oral lesion, no scleral icterus Heart: no chest pain, no chest pressure Lung: no cough, no dyspnea with exertion Abdomen: see HPI Physical exam: General: NAD, AAOX3 Chest: lung truong clear to auscultation Heart: RRR, no murmur Abdomen: non-distended, no tenderness to palpation, +BS Labs: Labs Test 10/14/24 06:06 10/13/24 05:52 10/12/24 15:48 10/12/24 11:21 Range/Units Plasma/Serum Blood Alcohol < 3.0 <10 mg/dL White Blood Count 5.3 4.4-10.8 10^3/uL Red Blood Count 4.09 L 4.5-5.90 10^6/uL Hemoglobin 13.9 13.5-17.5 g/dL Hematocrit 39.2 L 41.0-53.0 % Mean Corpuscular Volume 96.0 80.0-100.0 fL Mean Corpuscular Hemoglobin 33.9 H 28.0-32.0 pg Mean Corpuscular Hemoglobin Concent 35.3 32.0-36.0 g/dL Red Cell Distribution Width 13.0 11.8-14.3 % Platelet Count 108 L 140-450 10^3/uL Mean Platelet Volume 8.0 6.9-10.8 fL Neutrophils (%) (Auto) 67.1 37.0-80.0 % Lymphocytes (%) (Auto) 23.2 10.0-50.0 % Monocytes (%) (Auto) 8.9 0.0-12.0 % Eosinophils (%) (Auto) 0.2 0.0-7.0 % Basophils (%) (Auto) 0.6 0.0-2.0 % Neutrophils # (Auto) 3.6 1.6-8.6 10 ^3/uL Lymphocytes # (Auto) 1.2 0.4-5.4 10 ^3/uL Monocytes # (Auto) 0.5 0-1.3 10 ^3/uL Eosinophils # (Auto) 0 0-0.8 10 ^3/uL Basophils # (Auto) 0 0-0.2 10 ^3/uL Nucleated Red Blood Cells 0.0 % Sodium Level 133 L 136-145 mmol/L Potassium Level 3.5 3.5-5.1 mmol/L Chloride Level 95 L 98-107 mmol/L Carbon Dioxide Level 25 20-31 mmol/L Anion Gap 13 5-15 Blood Urea Nitrogen 5 L 9-23 mg/dL Creatinine 0.85 0.700-1.30 mg/dL Glomerular Filtration Rate Calc 105 >90 mL/min BUN/Creatinine Ratio 5.9 L 10.0-20.0 Serum Glucose 82 74-106 mg/dL Calcium Level 10.2 8.7-10.4 mg/dL Total Bilirubin 2.1 H 0.2-1.0 mg/dL Aspartate Amino Transferase (AST) 206 H 13-40 U/L Alanine Aminotransferase (ALT) 129 H 7-40 U/L Alkaline Phosphatase 89 46-116 U/L Total Protein 7.8 5.7-8.2 g/dL Albumin 5.1 H 3.2-4.8 g/dL Hepatitis B Surface Antigen Negative Negative Hepatitis C Antibody Negative Negative Urine Color Light-yellow Yellow Urine Clarity Clear Clear Urine pH 7.0 5.0-9.0 Urine Specific [place] 1.004 1.001-1.035 Urine Protein Negative Negative Urine Ketones Negative Negative Urine Blood 1+ H Negative /uL Urine Nitrite Negative Negative Urine Bilirubin Negative Negative Urine Urobilinogen Normal Negative mg/dL Urine Leukocyte Esterase Negative Negative /uL Urine RBC 1 0 - 3 /hpf Urine Microscopic WBC < 1 0-3 /HPF Urine Squamous Epithelial Cells None seen <5 /hpf Urine Bacteria None seen None Seen /hpf Urine Glucose Normal Normal mg/dL POC Glucose 113 H 70-106 mg/dl Imaging: Abdominal ultrasound IMPRESSION: No sonographic evidence of gallstones or acute cholecystitis. Hepatic steatosis/hepatomegaly. Assessment: Acute alcoholic intoxication Alcohol abuse Hepatic encephalopathy Plan: Discussed with Dr. Cheng Monitor labs in a.m. Check ammonia less Alcohol cessation discussed extensively We will continue to monitor pain Thank you for this consult Date of Service: Oct 14, 2024 Billing Provider: HEVER EUGENE Common Visit Codes: CONSULT ONLY Consultation Codes: [id number] CONSULT <60MIN HEVER EUGENE Oct 14, 2024 14:39
[2024-10-15 05:00] VITALS: BP 137/96; PULSE 75; RESP 18; TEMP 98.3; O2SAT 98
[2024-10-15 07:16] LABS: Albumin 4.5 g/dL (3.2-4.8); Alkaline Phosphatase 79 U/L (46-116); Anion Gap 9 (5-15); BUN/Creatinine Ratio 7.3 (10.0-20.0); Calcium 9.4 mg/dL (8.7-10.4); Carbon Dioxide 28 mmol/L (20-31); Chloride 98 mmol/L (98-107); Glucose 97 mg/dL (74-106); Total Protein 7.3 g/dL (5.7-8.2)
[2024-10-15 07:17] LABS: Alanine Aminotransferase 104 U/L (7-40); Bilirubin, Total 1.7 mg/dL (0.2-1.0); Blood Urea Nitrogen 6 mg/dL (9-23); Potassium 3.3 mmol/L (3.5-5.1); Sodium 135 mmol/L (136-145)
[2024-10-15 08:00] VITALS: PULSE 60
[2024-10-15 08:15] VITALS: PULSE 86; RESP 18; O2SAT 96
[2024-10-15 08:55] VITALS: BP 143/94; PULSE 86; RESP 18; TEMP 97; O2SAT 96
--- NOTE | 2024-10-15 09:58 | DVHPN2 ---
Reviewed: Care Plan, H&P, Labs, Medications, Previous Orders, Radiology Changes from previous H/P or p: No Changes Eyes: No Pain, No Vision change, No Conjunctivae inflammation, No Eyelid inflammation, No Other, No Redness ENT: No Ear pain, No Ear discharge, No Nose pain, No Nose discharge, No Nose congestion, No Mouth pain, No Mouth swelling, No Throat pain, No Throat swelling, No Other Cardiovascular: No Chest Pain, No Palpitations, No Orthopnea, No Paroxysmal Noc. Dyspnea, No Edema, No Lt Headedness, No Other Respiratory: No Cough, No Dry, No Shortness of breath, No SOB with excertion, No Wheezing, No Hemoptysis, No Pleuritic Pain, No Sputum, No Other Gastrointestinal: No Nausea, No Vomiting, No Abdominal Pain, No Diarrhea, No Constipation, No Melena, No Hematochezia, No Other Genitourinary: No Dysuria, No Frequency, No Incontinence, No Hematuria, No Retention, No Other Musculoskeletal: No other, No neck pain, No shoulder pain, No arm pain, No back pain, No hand pain, No leg pain, No foot pain Skin: No Rash, No Lesions, No Jaundice, No Bruising, No Other Objective Vitals Vital Signs Date Time Temp Pulse Resp B/P (MAP) Pulse Ox O2 Delivery O2 Flow Rate FiO2 10/15/24 08:55 97.0 86 18 143/94 (110) 96 97.0 10/15/24 08:15 Room Air* 0 21 Intake/Output Intake and Output 10/15/24 07:00 Intake Total 2700.2 ml Balance 2700.2 ml Intake Oral 2650 ml IV Total 50.2 ml # Voids 11 Medications Current Medications Medications Dose Ordered Sig/Nir Route Start Time Stop Time Status Last Admin Dose Admin Thiamine HCl 100 mg DAILY IV 10/13/24 10:00 10/14/24 11:26 100 MG Folic Acid 1 mg/ Dextrose 50.2 ml @ 200.8 mls/ hr DAILY INJ 10/13/24 10:00 10/14/24 11:25 200.8 MLS/HR Lorazepam 1 mg Q2HP PRN IV 10/12/24 15:15 Sodium Chloride 1,000 ml @ 120 mls/hr Q8H20M IV 10/12/24 15:15 10/15/24 02:36 120 MLS/HR Ondansetron HCl 4 mg Q4HP PRN IV 10/12/24 15:15 Docusate Sodium 100 mg BIDPRN PRN PO 10/12/24 15:15 Acetaminophen 650 mg Q6HP PRN PO 10/12/24 15:15 Nitroglycerin 0.4 mg Q5MINP PRN SL 10/12/24 15:15 Morphine Sulfate 2 mg Q30M PRN IV 10/12/24 15:15 Nicotine 1 patch DAILY TD 10/14/24 10:00 10/14/24 11:37 1 PATCH Laboratory Results Laboratory Tests 10/13/24 05:52 10/15/24 06:13 Chemistry Test 10/15/24 06:13 Albumin 4.5 g/dL (3.2-4.8) Calcium Level 9.4 mg/dL (8.7-10.4) Total Protein 7.3 g/dL (5.7-8.2) LFT Test 10/15/24 06:13 Alanine Aminotransferase (ALT) 104 U/L (7-40) H Alkaline Phosphatase 79 U/L (46-116) Aspartate Amino Transferase (AST) 113 U/L (13-40) H Total Bilirubin 1.7 mg/dL (0.2-1.0) H Urinalysis Test 10/12/24 15:48 Urine Color Light-yellow (Yellow) Urine Clarity Clear (Clear) Urine pH 7.0 (5.0-9.0) Urine Specific [place] 1.004 (1.001-1.035) Urine Protein Negative (Negative) Urine Ketones Negative (Negative) Urine Blood 1+ /uL (Negative) H Urine Nitrite Negative (Negative) Urine Bilirubin Negative (Negative) Urine Urobilinogen Normal mg/dL (Negative) Urine Leukocyte Esterase Negative /uL (Negative) Urine RBC 1 /hpf (0 - 3) Urine Microscopic WBC < 1 /HPF (0-3) Urine Squamous Epithelial Cells None seen /hpf (<5) Urine Bacteria None seen /hpf (None Seen) Urine Glucose Normal mg/dL (Normal) Labs and/or images reviewed: Labs reviewed by me, Image(s) reviewed by me Assessment/Plan Assessment/Plan Acute alcoholic intoxication blood alcohol 294; thiamine folic acid Ativan Acute dehydration: IV fluids Acute metabolic and toxic encephalopathy Chronic current alcohol abuse: Counseling Elevated liver enzymes AST and ALT in the range of 200s. Hep B negative hep C negative, GI consult by Dr. Juventino Cheng appreciated Time spent [address] head negative Patient feels much better and wants to go home Plan discussed with: Patient My Orders Orders - ART EUGENE MD Procedure Category Date Status Time * Gi Dvh Truck Driver Instructor CONS 10/14/24 Transmitted 12:14 Date of Service: Oct 15, 2024 Billing Provider: ART EUGENE MD Common Visit Codes: [id number] INP/OBS CARE(HIGH) ART EUGENE MD Oct 15, 2024 09:58
--- NOTE | 2024-10-15 10:02 | DVHDS2 ---
Discharge Summary Date of Admission Oct 12, 2024 at 15:14 Date of Discharge: Oct 15, 2024 Admitting Diagnosis Generalized weakness and altered mental status Wounds: None Labs/Diagnostic Data: Laboratory Results Test 10/15/24 06:13 10/14/24 14:50 10/14/24 06:06 10/13/24 05:52 Sodium Level 135 mmol/L (136-145) Potassium Level 3.3 mmol/L (3.5-5.1) Chloride Level 98 mmol/L (98-107) Carbon Dioxide Level 28 mmol/L (20-31) Anion Gap 9 (5-15) Blood Urea Nitrogen 6 mg/dL (9-23) Creatinine 0.82 mg/dL (0.700-1.30) Glomerular Filtration Rate Calc 106 mL/min (>90) BUN/Creatinine Ratio 7.3 (10.0-20.0) Serum Glucose 97 mg/dL (74-106) Calcium Level 9.4 mg/dL (8.7-10.4) Total Bilirubin 1.7 mg/dL (0.2-1.0) Aspartate Amino Transferase (AST) 113 U/L (13-40) Alanine Aminotransferase (ALT) 104 U/L (7-40) Alkaline Phosphatase 79 U/L (46-116) Total Protein 7.3 g/dL (5.7-8.2) Albumin 4.5 g/dL (3.2-4.8) Ammonia 23 umol/L (11-32) Plasma/Serum Blood Alcohol < 3.0 mg/dL (<10) White Blood Count 5.3 10^3/uL (4.4-10.8) Red Blood Count 4.09 10^6/uL (4.5-5.90) Hemoglobin 13.9 g/dL (13.5-17.5) Hematocrit 39.2 % (41.0-53.0) Mean Corpuscular Volume 96.0 fL (80.0-100.0) Mean Corpuscular Hemoglobin 33.9 pg (28.0-32.0) Mean Corpuscular Hemoglobin Concent 35.3 g/dL (32.0-36.0) Red Cell Distribution Width 13.0 % (11.8-14.3) Platelet Count 108 10^3/uL (140-450) Mean Platelet Volume 8.0 fL (6.9-10.8) Neutrophils (%) (Auto) 67.1 % (37.0-80.0) Lymphocytes (%) (Auto) 23.2 % (10.0-50.0) Monocytes (%) (Auto) 8.9 % (0.0-12.0) Eosinophils (%) (Auto) 0.2 % (0.0-7.0) Basophils (%) (Auto) 0.6 % (0.0-2.0) Neutrophils # (Auto) 3.6 10 ^3/uL (1.6-8.6) Lymphocytes # (Auto) 1.2 10 ^3/uL (0.4-5.4) Monocytes # (Auto) 0.5 10 ^3/uL (0-1.3) Eosinophils # (Auto) 0 10 ^3/uL (0-0.8) Basophils # (Auto) 0 10 ^3/uL (0-0.2) Nucleated Red Blood Cells 0.0 % Hepatitis B Surface Antigen Negative (Negative) Hepatitis C Antibody Negative (Negative) Test 10/12/24 15:48 10/12/24 11:21 Urine Color Light-yellow (Yellow) Urine Clarity Clear (Clear) Urine pH 7.0 (5.0-9.0) Urine Specific [place] 1.004 (1.001-1.035) Urine Protein Negative (Negative) Urine Ketones Negative (Negative) Urine Blood 1+ /uL (Negative) Urine Nitrite Negative (Negative) Urine Bilirubin Negative (Negative) Urine Urobilinogen Normal mg/dL (Negative) Urine Leukocyte Esterase Negative /uL (Negative) Urine RBC 1 /hpf (0 - 3) Urine Microscopic WBC < 1 /HPF (0-3) Urine Squamous Epithelial Cells None seen /hpf (<5) Urine Bacteria None seen /hpf (None Seen) Urine Glucose Normal mg/dL (Normal) POC Glucose 113 mg/dl (70-106) Other Laboratory Tests 10/15/24 06:13 10/13/24 05:52 Brief Hx & Hospital Course: 49-year-old male with a chronic alcohol abuse admitted for generalized weakness and acute alcoholic intoxication blood alcohol of 294 treated with a thiamine folic acid Ativan IV fluids AST and ALT were elevated in the range of 200 hep B negative hep C negative normal at the time of discharge patient is alert awake oriented x3 with stable vital signs and wants to go home seen by GI Dr. Juventino Cheng. Consults/Reason for consult GI Dr. Juventino Cheng Operations or Procedures CT head Condition at Discharge: Fair Final Diagnosis/Problems List Acute alcoholic intoxication blood alcohol 294; thiamine folic acid Ativan Acute dehydration: IV fluids Acute metabolic and toxic encephalopathy Chronic current alcohol abuse: Counseling Elevated liver enzymes AST and ALT in the range of 200s. Hep B negative hep C negative, GI consult by Dr. Juventino Cheng appreciated Discharge Disposition: Home Discharge Instruct/Medications Diet: Regular Activity: Light activity Follow Up/Referral: Stop Drinking alcohol Follow up with the primary Dr Take medications as prescribed Medications: Thiamine Folic acid Librium Pantoprazole Transmitted to pharmacy 35 (Time Taken for discharge summary 35 minutes) Discharge Statement: "Patient was advised to return to the ER or call 911 if any headaches, dizziness, shortness of breath, chest pain, abdominal pain, bleeding, fevers, or worsening of medical condition. Patient was counseled about treatment plan, medications, possible side effects, patientverbalized understanding. All questions were answered to the best of my ability. This discharge took greater then 30 minutes in planning, reviewing documentation, counseling the patient, and discussing with other team members." ASSESSMENT ASSESSMENT Hospital Course Improved Assessment Acute alcoholic intoxication blood alcohol 294; thiamine folic acid Ativan Acute dehydration: IV fluids Acute metabolic and toxic encephalopathy Chronic current alcohol abuse: Counseling Elevated liver enzymes AST and ALT in the range of 200s. Hep B negative hep C negative, GI consult by Dr. Juventino Cheng appreciated Date of Service: Oct 15, 2024 Billing Provider: ART EUGENE MD Common Visit Codes: [id number] DISCH DAY >30min ART EUGENE MD Oct 15, 2024 10:02
[2024-10-15] MEDS ORDERED: FOLI-119 PO (11:28)
[2024-10-15] MEDS ORDERED: THIA100T13 PO (11:28)
[2024-10-15] MEDS ORDERED: CHL25C PO (11:28)
[2024-10-15 11:29] VITALS: BP 125/95; PULSE 97; RESP 18; TEMP 36.1; O2SAT 98
--- NOTE | 2024-10-15 21:23 | DVHPN2 ---
Progress Note - Dictate Date Seen: Oct 15, 2024 (Late entryTime of visit 12noon) Medical Necessity Reason Pt with a Central, PICC or Fol: No Subjective No new complaints No nausea vomiting abdominal pain diarrhea or bleeding Patient is tolerating a diet Liver enzymes are trending down Hepatitis profile negative vital signs Vital Sign Date Time Temp Pulse Resp B/P (MAP) Pulse Ox O2 Delivery O2 Flow Rate FiO2 10/15/24 11:29 36.1 97 18 98 10/15/24 08:55 143/94 (110) 10/15/24 08:15 Room Air* 0 21 Total Intake and Output 10/14/24 10/14/24 10/15/24 15:00 23:00 07:00 Intake Total 50.2 ml 1600 ml 1050 ml Balance 50.2 ml 1600 ml 1050 ml objective General: NAD, AAOX3 Chest: lung truong clear to auscultation Heart: RRR, no murmur Abdomen: non-distended, no tenderness to palpation, +BS laboratory and microbiology Laboratory Tests 10/15/24 06:13 10/13/24 05:52 Test 10/15/24 06:13 Range/Units Serum Glucose 97 74-106 mg/dL Problems(with codes): (1) Alcoholic hepatitis (2) Elevated liver enzymes (3) Alcohol intoxication (4) Alcohol related seizure Prognosis Plan Liver enzymes are trending down and Maddrey discrimination function is low suggesting good prognosis Patient has been counseled about discontinuing alcohol He can follow up with our GI Services for ongoing management of chronic liver disease Discharge planning is in progress for today Plan discussed with: Patient, Other (Renetta Raya) MAIRA PERLA MD Oct 15, 2024 21:23
== END 2024-10-15 12:40 | disposition home or self-care (01) | DRG 101 ==
LOC: ER 11:13 → OVERFLOW 15:14 → TELE-WESTW 22:35
PROVIDERS: ADMIT Family Medicine; ATTEND Family Medicine
DX: G40.909 Epilepsy, unspecified, not intractable, without status epilepticus (principal); F10.239 Alcohol dependence with withdrawal, unspecified; R65.10 Systemic inflammatory response syndrome (SIRS) of non-infectious origin without acute organ dysfunction; K76.82 Hepatic encephalopathy; F10.229 Alcohol dependence with intoxication, unspecified; K76.0 Fatty (change of) liver, not elsewhere classified; E86.0 Dehydration; E87.6 Hypokalemia; Y90.8 Blood alcohol level of 240 mg/100 ml or more
CPT/HCPCS: 36415; 76705; 80048; 80053; 80320; 81001; 82140; 82962; 85025; 86803; 87340; 93005; 96361; 96372; 96374; G0378; J7060